=== PATIENT | female | born 1955 | race African-American/Black ===

== ENCOUNTER 2019-12-22 13:30 | Inpatient (IN) | payer MEDICARE, MEDICAID ==
[~2019-12-22] VITALS: Ht 175.3 cm; Wt 98.0 kg
[~2019-12-22 13:30] MED LIST: AMLO10TA80 PO; ASPI-1497 PO; ENOXAPARIN 40MG/0.4ML SYR SUBCUT SCH; LOSA50TA41 PO; OXYC10TA48 PO; OXYC20TA56 PO; PREG150C PO; PROAIR INH; TIZA4TAB5 PO; TOLT4CAP13 PO
[2019-12-22] MEDS ORDERED: SODIUM CHLORIDE 0.9% 1,000 ML IV ONE ×2 (14:00→17:40)
[2019-12-22] MEDS ORDERED: SODIUM CHLORIDE 0.9% 1000ML BAG (SEPSIS BOLUS) IV ONE (14:15)
[2019-12-22] MEDS ORDERED: NOREPINEPHRINE 4 MG in DEXTROSE 5% WATER 250 ML IV ONE (14:15)
[2019-12-22] MEDS ORDERED: NOREPINEPHRINE 4MG/250ML PMX 250 ML IV ONE (14:15)
[2019-12-22] MEDS ORDERED: CEFTRIAXONE 1 G PREMIX 50 ML IV ONE (14:15)
[2019-12-22 14:29] LABS: HEMATOCRIT. 37.2 % (36.0-48.0); HEMOGLOBIN. 11.7 g/dL (12.0-16.0); MEAN CORPUSCULAR HEMOGLOBIN 27.1 pg (28.0-32.0); MEAN CORPUSCULAR VOLUME 86.6 fL (81.0-99.0); MEAN PLATELET VOLUME 8.4 fl (7.4-10.4); PLATELET 255 x1000/uL (130-400); RED CELL DISTRIBUTION WIDTH 18.6 % (11.6-14.6)
[2019-12-22 14:37] LABS: CHLORIDE 107 mEq/L (98-107)
[2019-12-22 14:46] LABS: PROTHROMBIN TIME 10.7 sec (9.6-11.0)
[2019-12-22 15:05] LABS: PLATELET ESTIMATE NORMAL
[2019-12-22] MEDS ORDERED: HYDROCODONE/ACETAMINOPHEN 5/325MG TABLET PO ONE (18:15)
[2019-12-22 18:28] LABS: CLARITY URINE CLEAR (CLEAR); COLOR URINE YELLOW (YELLOW); KETONES URINE NEGATIVE (NEGATIVE); LEUKOCYTE ESTERASE URINE NEGATIVE (NEGATIVE); NITRITE URINE NEGATIVE (NEGATIVE); OCCULT BLOOD URINE NEGATIVE (NEGATIVE); PH URINE 5.5 (4.5-8.0); PROTEIN URINE TRACE (NEGATIVE)
[2019-12-22] MEDS ORDERED: ROSU40TA MT (18:44)
[2019-12-22] MEDS ORDERED: NORT10CA PO (18:44)
[2019-12-22] MEDS ORDERED: LEVE750T10 PO (18:44)
[2019-12-22] MEDS ORDERED: HYDR-4001 PO (18:44)
[2019-12-22] MEDS ORDERED: IPRATROPIUM/ALBUTEROL 0.5-3(2.5)MG/3ML NEB NEB PRN (22:00)
[2019-12-22] MEDS ORDERED: LORAZEPAM 2MG/ML CPJ IV PRN (22:00)
[2019-12-22] MEDS ORDERED: ONDANSETRON HCL 4MG/2ML INJ IV PRN (22:00)
[2019-12-22] MEDS ORDERED: IPRATROPIUM/ALBUTEROL 0.5-3(2.5)MG/3ML NEB HHN PRN (22:00)
[2019-12-22] MEDS ORDERED: HYDROCODONE/ACETAMINOPHEN 5/325MG TABLET PO PRN (22:00)
[2019-12-22] MEDS: GABAPENTIN 400MG CAPSULE PO SCH (22:30)
[2019-12-22] MEDS: CYCLOBENZAPRINE 10MG TABLET PO SCH (22:30)
[2019-12-22] MEDS ORDERED: NORTRIPTYLINE HCL 10MG CAPSULE PO SCH (23:30)
[2019-12-23] VITALS (7 sets, daily range): BP systolic 52–139; BP diastolic 48–107
[2019-12-23] MEDS: MORPHINE SULFATE 2 MG/ML CPJ (NOT FOR IM USE) IV PRN ×2 (01:00→05:02)
[2019-12-23] MEDS: CYCLOBENZAPRINE 10MG TABLET PO SCH ×2 (05:54→13:31)
[2019-12-23] MEDS: GABAPENTIN 400MG CAPSULE PO SCH ×2 (05:55→13:31)
[2019-12-23 05:57] LABS: HEMOGLOBIN. 9.6 g/dL (12.0-16.0); MEAN CORPUSCULAR HEMOGLOBIN 27.5 pg (28.0-32.0); MEAN CORPUSCULAR VOLUME 85.9 fL (81.0-99.0); MEAN PLATELET VOLUME 8.7 fl (7.4-10.4); PLATELET 206 x1000/uL (130-400); RED BLOOD CELL COUNT 3.49 mill/uL (4.2-5.4); RED CELL DISTRIBUTION WIDTH 18.3 % (11.6-14.6)
[2019-12-23 05:58] LABS: CHLORIDE 117 mEq/L (98-107)
[2019-12-23 06:05] LABS: PHOSPHORUS 2.5 mg/dL (2.5-4.9)
[2019-12-23] MEDS ORDERED: PANTOPRAZOLE 40MG DR TABLET PO SCH (07:20)
[2019-12-23] MEDS: HYDROCODONE/ACETAMINOPHEN 5/325MG TABLET PO PRN ×2 (08:42→13:32)
[2019-12-23] MEDS ORDERED: FUROSEMIDE 40MG TABLET PO SCH (09:00)
[2019-12-23] MEDS ORDERED: CARVEDILOL 12.5MG TABLET PO SCH (09:00)
[2019-12-23] MEDS ORDERED: ENOXAPARIN 40MG/0.4ML SYR SUBCUT SCH (09:00)
[2019-12-23] MEDS ORDERED: LEVETIRACETAM 250MG TABLET PO SCH (09:00)
[2019-12-23] MEDS ORDERED: ASPIRIN 81MG TABLET PO SCH (09:00)
[2019-12-23] MEDS ORDERED: DEXAMETHASONE 4MG TABLET PO SCH (09:00)
[2019-12-23 13:22] LABS: PLATELET ESTIMATE NORMAL
[2019-12-23] MEDS ORDERED: MAGNESIUM 2 G PREMIX 50 ML IV SCH (14:00)
[2019-12-23] MEDS ORDERED: MAGNESIUM GLUCONATE 500MG TABLET PO SCH (17:00)
== END 2019-12-23 17:40 | disposition home or self-care (01) | DRG 314 ==
LOC: ER 14:22 → 6WST 16:53 → EDBEDREQ 16:59 → EDBEDREQSVC 16:59 → EDBEDREQTM 16:59 → EDBEDREQSVC 17:20 → EDBEDREQTM 17:20 → EDBEDREQSVC 18:10 → EDBEDREQTM 18:10 → ENRESERV 19:50
PROVIDERS: ADMIT Internal Medicine Nephrology; ATTEND Internal Medicine Nephrology
DX: I95.9 Hypotension, unspecified (principal); G92 Toxic encephalopathy; E87.1 Hypo-osmolality and hyponatremia; E78.00 Pure hypercholesterolemia, unspecified; I10 Essential (primary) hypertension; R74.0 Nonspecific elevation of levels of transaminase and lactic acid dehydrogenase [LDH]; I25.10 Atherosclerotic heart disease of native coronary artery without angina pectoris; J44.9 Chronic obstructive pulmonary disease, unspecified; I25.2 Old myocardial infarction; Z88.8 Allergy status to other drugs, medicaments and biological substances; Z79.899 Other long term (current) drug therapy; Z79.82 Long term (current) use of aspirin
CPT/HCPCS: 36415; 71045; 76700; 80048; 80053; 81003; 83605; 83735; 84100; 84145; 84484; 85025; 93005; 93306; J0696; J1650; J2270; J3475; J3490; J7030; J7060; A4315

== ENCOUNTER 2020-05-19 16:59 | Inpatient (IN) | payer MEDICARE, BC, MEDICAID ==
[~2020-05-19] VITALS: Ht 175.3 cm; Wt 100.0 kg
[~2020-05-19 16:59] MED LIST changes: -AMLO10TA80 PO; -ASPI-1497 PO; -ENOXAPARIN 40MG/0.4ML SYR SUBCUT SCH; +HYDR-4001 PO; +HYDR2TAB4 MT; -LOSA50TA41 PO; -OXYC10TA48 PO; -OXYC20TA56 PO; -PREG150C PO; -PROAIR INH; -TIZA4TAB5 PO; -TOLT4CAP13 PO
[2020-05-19] MEDS ORDERED: MORPHINE SULFATE 4 MG/ML CPJ (NOT FOR IM USE) IV STA (17:33)
[2020-05-19 17:54] LABS: BASOPHILS % 0.4 % (0.0-2.0); EOSINOPHILS % 3.8 % (0.0-5.0); HEMOGLOBIN. 10.4 g/dL (12.0-16.0); LYMPHOCYTES % 7.7 % (20.0-50.0); MEAN CORPUSCULAR HEMOGLOBIN 27.4 pg (28.0-32.0); MEAN CORPUSCULAR VOLUME 89.4 fL (81.0-99.0); MEAN PLATELET VOLUME 9.3 fl (7.4-10.4); MONOCYTES % 6.2 % (2.0-8.0); NEUTROPHILS % 81.9 % (40.0-76.0); PLATELET 99 x1000/uL (130-400); RED CELL DISTRIBUTION WIDTH 23.7 % (11.6-14.6)
[2020-05-19 17:59] LABS: CHLORIDE 99 mEq/L (98-107)
[2020-05-19] MEDS ORDERED: SODIUM CHLORIDE 0.9% 1,000 ML IV ONE ×2 (18:00→18:45)
[2020-05-19 18:10] LABS: BG BASE EXCESS -12.5 mmol/L (-2.0-2.0); BG CARBOXYHEMOGLOBIN 0.4 % (0.5-1.5); BG DEOXYHEMOGLOBIN 13.2 % (0.0-5.0); BG FRACTION INSPIRED OXYGEN 100; BG HCO3 ACT 11.5 mmol/L (22.0-26.0); BG METHEMOGLOBIN 0.2 % (0.0-1.5); BG OXYGEN SATURATION 86.7 % (92.0-98.5); BG OXYHEMOGLOBIN 86.2 % (94.0-97.0); BG PCO2 21.8 mmHg (35.0-45.0); BG PO2 60.6 mmHg (75.0-100.0); BG SAMPLE SITE RIGHT BRACHIAL; BG TOTAL HEMOGLOBIN 10.4 g/dL (12.0-18.0); BG VENT MODE MASK - NRB
[2020-05-19] MEDS ORDERED: VANCOMYCIN 1 G PREMIX 200 ML IV SCH (18:45)
[2020-05-19] MEDS ORDERED: PIPERACILLIN/TAZOBACTAM 3.375GM/50ML PREMIX IV ONE (18:45)
[2020-05-19 18:56] LABS: PROTHROMBIN TIME 20.4 sec (9.6-11.0)
[2020-05-19] MEDS ORDERED: PIPERACILLIN/TAZOBACTAM 3.375 G in DEXT 5% WATER 100 ML IV SCH (19:00)
[2020-05-19 19:02] LABS: CLARITY URINE CLOUDY (CLEAR); COLOR URINE YELLOW (YELLOW); KETONES URINE NEGATIVE (NEGATIVE); LEUKOCYTE ESTERASE URINE 3+ (NEGATIVE); NITRITE URINE NEGATIVE (NEGATIVE); OCCULT BLOOD URINE TRACE (NEGATIVE); PROTEIN URINE TRACE (NEGATIVE); SPECIFIC GRAVITY URINE 1.012 (1.005-1.030)
[2020-05-19 19:11] LABS: PLATELET ESTIMATE DECREASED
[2020-05-19] MEDS ORDERED: FENTANYL CITRATE/PF 50MCG/ML 2ML VIAL IV ONE (19:15)
[2020-05-19 20:00] VITALS: BP 181/126
== END 2020-05-19 22:15 | disposition expired | DRG 872 ==
LOC: ER 16:59 → EDBEDREQ 20:23 → EDBEDREQTM 20:23 → EDBEDREQSVC 20:23 → MICUSO 21:02 → EDBEDREQSVC 21:22 → EDBEDREQTM 21:22
PROVIDERS: ADMIT Internal Medicine; ATTEND Internal Medicine
PROC: 5A09357 Assistance with Respiratory Ventilation, Less than 24 Consecutive Hours, Continuous Positive Airway Pressure (ICD-10-PCS; principal; 2020-05-19)
DX: A41.9 Sepsis, unspecified organism (principal); N39.0 Urinary tract infection, site not specified; E44.0 Moderate protein-calorie malnutrition; I10 Essential (primary) hypertension; J44.9 Chronic obstructive pulmonary disease, unspecified; Z96.649 Presence of unspecified artificial hip joint; Z20.828 Contact with and (suspected) exposure to other viral communicable diseases; Z66 Do not resuscitate; Z85.05 Personal history of malignant neoplasm of liver; Z86.73 Personal history of transient ischemic attack (TIA), and cerebral infarction without residual deficits; Z98.1 Arthrodesis status; Z85.830 Personal history of malignant neoplasm of bone; Z88.8 Allergy status to other drugs, medicaments and biological substances; Z79.899 Other long term (current) drug therapy; Z85.118 Personal history of other malignant neoplasm of bronchus and lung
CPT/HCPCS: 36415; 36600; 71045; 71250; 74176; 78580; 80053; 81003; 82375; 82805; 83605; 83880; 84484; 85025; 93005; 94660; 96374; 99291; J2270; J2543; J3010; J3370; J7030; J7060; U0003-CS